=== PATIENT | male | born 1950 | race Caucasian/White ===

== ENCOUNTER 2021-03-01 08:00 | Outpatient (RCR) | payer MEDICARE, SELFPAY ==
--- NOTE | 2021-02-10 12:14 | PTOPEVAL ---
INITIAL PHYSICAL THERAPY EVALUATION and PLAN OF CARE Thank you for referring Jose Angel Dennis to [facility].? Jose Angel is scheduled to be seen for physical therapy? 2x/week for 4 weeks. Please review, sign, date and return this plan of care KRISTOPHER. I agree with and certify that the following plan of care is medically necessary. Referring Physician Date Admitting Provider: Attending Provider: Willie Fernández, Referring Provider: *PT Outpatient Evaluation Start: 02/10/21 08:02 Freq: Status: Active Protocol: Document 02/10/21 08:03 NICK (Rec: 02/10/21 09:01 NICK [email or web address]) Therapy Assessment Status Assessment Status Assessment Status Evaluation Outpatient Past Medical History Past Medical History Source of Past Medical History Patient Cardiovascular History Hx Coronary Stent Yes Hx Hypercholesterolemia Yes Hx Hypertension Yes Musculoskeletal History Hx Arthritis Yes Hx Spinal Surgery Yes: lumbar fusion,cervical- anterior approach Hx Other Musculoskeletal Disorders Yes: surgery for Dupuytren's contracture Endocrine History Hx Diabetes Yes: watching it - no meds Evaluation Information Problem Diagnosis Cervical Spondylosis C3-4, C4- 5 Onset years - worsening Subjective Information Jose Angel reports that neck will Query Text:As Reported By Patient/ snap and pop, hurts to turn Family head, feels like something is constantly pushing down on his head. Sleeping - needs to reposition often due to discomfort. In mornings - increase in stiffness, then will loosen up. If neck is still - like with watching TV or computer - when goes to move increase in discomfort. 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 Home Meds Must Be Re-entered With Each Visit. Comments Additional Prior Level of Function stays active - farm work - Comments
--- NOTE | 2021-03-10 08:33 | PCPTNOTE ---
Patient called & cancelled scheduled appointment this date due feeling well - doesn't need any further PT.
--- NOTE | 2021-03-10 08:34 | PCPTNOTE ---
PHYSICAL THERAPY DISCHARGE SUMMARY Admitting Provider: Attending Provider: Willie Fernández, Patient:Jose Angel Dennis Date of :1950 Jose Angel has done well in PT. We were able to cancel 2 of his appointments due to positive progress, but then he also cancelled his re-eval appointment for 03/10/2021 since he was feeling better. 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 He has continued to stay busy and perform his HEP which he feels does help him. He was seen for a total of 6 visits. The goals have been met. Thank you for referring Jose Angel to [facility]. Please review, sign, date and return this discharge summary KRISTOPHER. I have been updated about Jose Angel's current status and I agree with discharge from the above service at this time. Referring Physician Date
== END 2021-05-02 09:48 | disposition home or self-care (01) ==
LOC: ANHHIPT 08:00
PROVIDERS: PCP Internal Medicine; Visit Provider Neurological Surgery
DX: M47.812 Spondylosis without myelopathy or radiculopathy, cervical region (principal)
CPT/HCPCS: 97014; 97110; 97140; 97162; G0283

== ENCOUNTER 2021-08-07 07:51 | Outpatient (CLI) | payer MEDICARE, SELFPAY ==
[2021-08-07 09:32] LABS: Basophils Percent Auto 0.6 % (0.2-1.2); Eosinophils Absolute Auto 0.3 K/mm3 (0-0.3); Eosinophils Percent Auto 4.1 % (0-4.4); Hematocrit 47.1 % (42.0-52.0); Hemoglobin 16.5 g/dL (14.0-18.0); Immature Granulocyte Absolute 0.02 K/mm3 (0.00-0.031); Immature Granulocyte Percent A 0.3 % (0-0.5); Lymphocytes Absolute Auto 1.14 K/mm3 (0.9-3.2); Mean Corpuscular Hemoglobin 30.2 pg (26-34); Mean Corpuscular Volume 86.3 fl (80-100); Mean Platelet Volume 10.4 fl (7.4-10.4); Monocytes Absolute Auto 0.8 K/mm3 (0.1-0.6); Monocytes Percent Auto 11.5 % (2.6-8.5); Neutrophils Absolute Auto 4.8 K/mm3 (1.3-6.7); Neutrophils Percent Auto 67.5 % (45.5-73.1); Platelet Count Result 226 k/mm3 (150-375); Red Blood Count 5.46 M/mm3 (4.6-6.20); Red Cell Distribution Width 13.1 % (11.5-14.5); White Blood Count 7.1 K/mm3 (4.5-10.0)
[2021-08-07 09:42] LABS: INR 1.1; Partial Thromboplastin Time 25.9 SECONDS (22.3-36.8); Prothrombin Time 13.7 Seconds (11.1-14.7); Urine Cotinine NEGATIVE
[2021-08-07 09:45] LABS: Albumin Level 4.6 g/dL (3.5-5.1); Anion Gap 9 mmol/L (8-16); Blood Urea Nitrogen 25 mg/dL (9-20); Calcium 9.3 mg/dL (8.4-10.2); Carbon Dioxide 23 mmol/L (22-30); Chloride 106 mmol/L (98-107); Estimated Glomerular Filt Rate > 60; Glucose 156 mg/dL (65-110); Potassium 4.1 mmol/L (3.4-5.0); Sodium 138 mmol/L (137-145)
[2021-08-07 09:47] LABS: Add Urine Microscopic? YES; Appearance Urine Clear (Clear); Bilirubin Urine Negative (Negative); Blood Urine Negative (Negative); Color Urine Yellow (Yellow); Glucose Urine UA 1+ mg/dL (Negative); Ketones Urine Negative (Negative); Leukocyte Esterase Ur Negative LEU/UL (Negative); Mucus Urine Rare /lpf; Nitrate Urine Negative (Negative); Protein Urine Negative (Negative); RBC Urine 0-2 /hpf (0-2); Specific Grav Ur 1.029 (1.001-1.035); Squamous Epithelial Cell Urine Rare /hpf (Few); Urobilinogen Urine Negative mg/dL (<2.0); WBC Urine 0-3 /hpf
[2021-08-07 09:49] LABS: Hemoglobin A1C 6.3 % (<5.7)
== END 2021-08-07 07:52 | disposition home or self-care (01) ==
LOC: ANHSURGERY 08:01
PROVIDERS: PCP Internal Medicine; Visit Provider Orthopaedic Surgery
DX: Z01.818 Encounter for other preprocedural examination (principal); M16.9 Osteoarthritis of hip, unspecified
CPT/HCPCS: 80048; 80307; 81001; 82040; 83036; 85025; 85610; 85730; 87081

== ENCOUNTER 2021-08-29 11:47 | Inpatient (IN) | payer MEDICARE, SELFPAY ==
--- NOTE | 2021-08-07 08:00 | PC.NURSE ---
Report to the Outpatient Waiting Room, entrance under the green pavilion located off [facility], at time _0600_ on date _08/29/21_. OR Time: _0730_. - You and your visitor will be asked a series of questions to screen for COVID 19 for your protection. - A mask is required within the hospital. One visitor will be allowed to accompany the patient into the hospital. Patients visitor will be instructed to remain with patient at all times or leave the building. We will allow the visitor to come back to the postoperative area when patient is ready. (VISITING HOURS 10AM-7PM, USE MAIN ENTRANCE) Preoperative COVID Testing Requirements: NONE Patients may have clear liquids (water, carbonated beverages, clear teas, apple juice) until 3 hours prior to surgery (0430 AM) with a maximum of 20 ounces. - No food from midnight until time of surgery Take the following medications with a SIP of water the morning of surgery: METOPROLOL Medications to discontinue per physician - ASPIRIN 7 DAYS PRIOR TO SURGERY, LAST DOSE TO BE TAKEN ON 08/21/21, CALL DR. LEMON'S OFFICE REGARDING MELOXICAM & IBUPROFEN Medications to discontinue per ANESTHESIA - MULTIVITAMIN 3 DAYS PRIOR TO SURGERY, LAST DOSE TO BE TAKEN ON 08/25/21 Please no deodorant, or body powder the day of surgery. No jewelry (including any body piercings) or valuables the day of surgery, leave them at home. Please take a shower or bath the night before, or the morning of, surgery with an antibacterial soap. Wear comfortable, loose fitting clothing. - Jewelry must be removed prior to entering the operating room. Rings and piercings that are not removed may be cut off. - The hospital will not accept responsibility for valuables. - Please leave all valuables, including medications, at home the day of surgery. If you are going home after surgery, a licensed parts delivery driver must drive you home. - NO public transportation without another adult. - We recommend that an adult stay with you for 24 hours following discharge. - We also recommend that you do not drive, make important decision, drink alcoholic beverages, or take any drugs that were not prescribed by your health care provider for at least 24 hours after your discharge time. Follow any additional instructions given to you from your surgeon. Instructions given to ____PT and asked if any additional questions and then verbalized understanding. Patient advised to call surgeon office or pre surgery nurse liaisonJERRELL [phone] if any additional questions.
[2021-08-07 08:20] VITALS: BP 142/90; PULSE 88; RESP 20; TEMP 36.7; O2SAT 98; BMI 36.1
--- NOTE | 2021-08-07 08:40 | PC.NURSE ---
LATE ENTRY - 0755 DR. LEMON'S OFFICE CALLED, SPOKE WITH JAMES AND INFORMED PT WAS DX WITH SHINGLES 08/04/21 AND CURRENTLY TAKING VALACYCLOVIR - STATES WILL INFORM MED MANAGER CLUB SINCE DR. LEMON NOT IN OFFICE
[2021-08-29] VITALS (17 sets, daily range): BP systolic 92–154; BP diastolic 57–93; PULSE 63–105; RESP 12–20; TEMP 35.6–36.7; O2SAT 93–98
--- NOTE | ~2021-08-29 | XR_ITS ---
EXAMINATION: XR hip RT 1V DATE: 08/29/2021 10:27 INDICATION: Right total hip arthroplasty TECHNIQUE: AP view of the right hip FINDINGS: There is a right total hip arthroplasty in expected position. Subcutaneous gas with soft t issue swelling are consistent with recent surgery. IMPRESSION: 1. Recent right total hip arthroplasty. Reviewed, dictated and finalized at location A.
[2021-08-29] MEDS: LACTATED RINGERS 1,000 ML 30 ML IV CONT ×3 (06:35→10:16)
[2021-08-29] MEDS: TRANEXAMIC ACID 1,000MG/ISO100 1,000 MG/100 ML BAG 200 MG IVPB (06:35)
[2021-08-29 07:02] LABS: Glucose Point of Care 143 mg/dl (65-105)
--- NOTE | 2021-08-29 07:04 | WPDANESEPPF ---
Anes - Initial Pre Proc Eval Procedure: Operation Date: 08/29/21 07:30 Proposed Procedures p Right Total Hip Arthroplasty - Leonel Yancey MD Date/Time: 08/29/21 07:04 Surgeon: Leonel Yancey MD Pre Op Diagnosis: right hip djd Patient Data Age: 71 Gender: M Height: 1.63 m Weight: 95.4 kg Last Vital Signs Temp 36.7 C 08/07/21 08:20 Pulse 88 08/07/21 08:20 Resp 20 08/07/21 08:20 BP 142/90 H 08/07/21 08:20 Pulse Ox 98 08/07/21 08:20 Allergies Allergy/AdvReac Type Severity Reaction Status Date / Time Jmnlpco-OAM-GxW Reductase Allergy Intermediate Hives/RASH Verified 08/29/21 06:17 Inhibitor [Fyuieng-Ocz-Yfb Reductase Inhibitor] [place] Allergy Severe shuts Uncoded 08/29/21 06:17 breathing down Home Medications Medication Instructions Recorded Confirmed Type aspirin 325 mg tablet 81 mg PO DAILY tablet 02/07/21 08/29/21 History losartan 100 mg tablet 100 mg PO QAM 02/07/21 08/29/21 History meclizine 25 mg tablet 25 mg PO BID 02/07/21 08/29/21 History meloxicam 15 mg tablet 15 mg PO QAM 02/07/21 08/29/21 History metformin 500 mg tablet 500 mg PO BID 02/07/21 08/29/21 History metoprolol tartrate 25 mg tablet 25 mg PO QAM tablet 02/07/21 08/29/21 History ibuprofen 600 mg PO Q6H PRN 08/07/21 08/29/21 History multivitamin [Multi-Vitamin] 1 tablet PO QAM 08/07/21 08/29/21 History nitroglycerin 0.4 mg SUBLINGUAL Q5-15M PRN 08/07/21 08/07/21 History chlorhexidine gluconate 4 % 1 applic TOPICAL ONCE #237 ml 08/21/21 08/29/21 Rx topical liquid Laboratory Tests 08/29/21 06:59 POC Capillary Glucose 143 mg/dl H mg/dl (65-105) Patient hx anesthesia problems: none Family hx anesthesia problems: none Results Review: All pre-operative results and documents have been reviewed as part of the pre-operative evaluation. [facility] Past Medical History Medical History (Updated 08/29/21 @ 07:04 by Ravindra Pappas MD) CAD (coronary artery disease) Shingles Surgical History Surgical History History of back surgery Lower back, 2010, Dr. Lerner History of elbow surgery History of hand surgery Dr. Sanchez History of neck surgery 2012, Dr. Lerner Stented coronary artery Family History Family History Other Heart disease History of arthritis History of lung disease Social History Social History Smoking status: Never smoker Second hand tobacco smoke exposure: No Additional smoking assessment comments: PT DENIES ALL FORMS OF TOBACCO USE Alcohol intake: never Substance use: never Substance use type: does not use Living arrangements: alone Additional occupation/education comments: [employer] Spiritual care concerns: No Anes - Eval Final PreProcedure Day of Procedure 08/29/21 07:04 Patient weight: obese Heart: regular rate and rhythm Lungs: clear to auscultation Airway: Mallampati scale class II Neurological: alert and oriented Last oral intake: >/= 8 hours ASA classification: III Emergent: no Anesthetic plan: proceed Anesthesia type and monitoring: general ETT and standard monitoring Results Review: All pre-operative results and documents have been reviewed as part of the pre-operative evaluation. Informed Consent: The patient's anesthetic plan and its attendant risks and benefits were discussed with the patient/family/POA. Questions were solicited and answers provided to the satisfaction of the patient/family/POA.
[2021-08-29] MEDS: ACETAMINOPHEN 500 MG TABLET 1000 MG PO (07:20)
--- NOTE | 2021-08-29 07:21 | WPDHPUPDATE1 ---
History and Physical Update Update Date/Time: 08/29/21 07:21 History and Physical has been reviewed, including an updated exam of the patient. There are NO changes in the patient's condition. Risks, benefits, and alternatives have been discussed and questions answered. Patient agrees to proceed with procedure.
[2021-08-29] MEDS: ceFAZolin 2 GM/D5W 50 ML 2 GM/50 ML BAG IVPB ×2 (07:33→16:12)
[2021-08-29] MEDS: TRANEXAMIC ACID 1,000 MG/10 ML AMPUL 1000 MG IV PUSH (09:17)
--- NOTE | 2021-08-29 09:53 | W.PM.PROC2 ---
Procedure Note - Detailed Date of Procedure 08/29/21 Pre-op Diagnosis right hip djd Post-op Diagnosis Same Procedure Performed R WIL Surgeon Leonel Yancey MD Anesthesia General Description of Procedure THE PATIENT WAS TAKEN TO THE OPERATING ROOM IN STABLE CONDITION AND WAS PLACED IN THE LATERAL DECUBITUS AND THE RIGHT LOWER EXTREMITY WAS PREPPED AND DRAPED IN THE STERILE FASHION. INCISION WAS MADE IN THE POSTERIOR LATERAL SIDE OF THE HIP, DOWN TO THE FASCIA LAYER. THE FASCIA WAS INCISED. THE HIP WAS EXPOSED. THE SHORT EXTERNAL ROTATORS WERE EXPOSED. THE SCIATIC NERVE WAS IDENTIFIED. THERE WAS A HIGH BIFURCATION OF THE NERVE. INCISION WAS MADE THROUGH THE SORT EXTERNAL ROTATORS AND THE CAPSULE OF THE HIP JOINT. THE HIP WAS DISLOCATED. AN OSTEOTOMY WAS MADE TO THE FEMORAL NECK ABOUT 1 CM PROXIMAL TO THE LESSER TROCHANTER. THE ACETABULUM WAS EXPOSED. THERE WAS SEVERE DJD SEEN. BEGINNING WITH A 44 REAMER THE ACETABULUM WAS REAMED TO 53 MM. A 55 MM TRIAL WAS PLACED IN 35 DEG OF ABDUCTION AND ANTEVERSION WAS IN ALIGNMENT WITH THE TRANS ACETABULAR LIGAMENT. THE FIT WAS EXCELLENT. THE TRIAL WAS REMOVED. A 56 MM BIOMET G7 COMPONENT WAS THEN TAPPED IN TO PLACE IN 35 DEG OF ABDUCTION AND ANTEVERSION IN ALIGNMENT WITH THE TRANSVERSE ACETABULAR LIGAMENT. THE FIT WAS EXCELLENT. THE ACETABULAR LINER WAS PLACED AND CHECKED FOR STABILITY. NEXT THE FEMUR WAS PREPARED WITH INITIAL CANAL FINDER THEN SEQUENTIAL BROACHING WITH A TAPERLOC HIP SYSTEM, UNTIL A 13 BROACH FIT WELL IN 15 OF ANTEVERSION. A +0 HIGH OFFSET NECK WITH 36 MM HEAD TRIAL WAS PLACED. THE SHUCK TEST WAS EXCELLENT AND THE STABILITY IN FLEXION AND ROTATION WAS EXCELLENT. LEG LENGTHS WERE GROSSLY EQUAL. TRIALS WERE REMOVED. A BIOMET TAPERLOC 13 STEM WAS PLACED WITH A HIGH OFFSET NECK THE FIT WAS EXCELLENT IN 15 DEG OF ANTEVERSION. A +0 CERAMIC 36 MM FEMORAL HEAD WAS PLACED. THE HIP WAS TRIALED AND THE STABILITY WAS EXCELLENT WERE THE LEG LENGTHS AND THE SHUCK TEST. THE WOUND WAS IRRIGATED WITH STERILE BETADINE AND WATER FOR 3 MIN. THEN WASHED AGAIN. THE CAPSULE AND THE EXTERNAL ROTATORS WERE APPROXIMATED WITH NUMBER 1 VICRYL. THE FASCIA WITH A NUMBER 1 AND THE SUB CUTANEOUS LAYER WITH 2-0 ABSORBABLE SUTURE WITH A RUNNING 3-0 SUBCUTICULAR LAYER WELL. DERMABOND WAS PLACED AND STERILE DRESSING WAS APPLIED. PATIENT WAS PLACED BACK ON TO THE SUPINE POSITION AND WAS EXTUBATED Estimated Blood Loss 200 Complications No immediate complications Condition Stable Disposition PACU
[2021-08-29 10:37] LABS: Glucose Point of Care 196 mg/dl (65-105)
[2021-08-29] MEDS: fentaNYL CITRATE INJ (*CRX) 100 MCG/2 ML VIAL 25 MCG IV PUSH ×4 (10:40→11:25)
--- NOTE | 2021-08-29 10:45 | SUR.PHASEI ---
1023 RT HIP 1 VIEW XRAY TAKEN IN PACU.
[2021-08-29 11:29] LABS: Hepatitis B Surface Antigen Negative (Negative)
[2021-08-29 11:47] LABS: HIV 1/2 Ab P24 Ag Result Negative (Negative); Hepatitis C Virus Antibody Negative (Negative)
--- NOTE | 2021-08-29 12:39 | ADMGEN ---
This patient, Jose Angel Dennis, was admitted to Medical Room 246-01 from PACU. Patient/family oriented to hospital policies and general routines including ID bracelet, bed and alarms, visiting hours, pain management, procedures, bathroom and other care routines, personal items, smoking policy, room service/diet, and visiting hours. Information on how to activate the Rapid Response Team has been discussed. Patient/Family are encouraged to report perceived risks to care and to ask questions if they do not understand what they are told or what they should do.
[2021-08-29] MEDS: SODIUM CHLORIDE 0.9% IV 1,000 ML 125 ML IV CONT (13:00)
[2021-08-29] MEDS: KETOROLAC 15 MG/ML VIAL (*BKC) IV PUSH ×2 (13:24→18:55)
[2021-08-29] MEDS: ONDANSETRON INJ 4 MG/2 ML VIAL IV PUSH ×2 (14:38→18:56)
[2021-08-29] MEDS: HYDROcodone/acetaminophen (*CRX) 7.5-325 MG TABLET 1 TAB PO ×3 (16:12→22:53)
[2021-08-29] MEDS: MECLIZINE HCL 25 MG TABLET PO (17:03)
[2021-08-29] MEDS: metFORMIN HCL 500 MG TABLET PO (17:04)
[2021-08-29] MEDS: SENNA/DOCUSATE SODIUM TABLET 2 TAB PO (17:04)
[2021-08-29 21:05] LABS: Glucose Point of Care 168 mg/dl (65-105)
[2021-08-30] VITALS (8 sets, daily range): BP systolic 100–134; BP diastolic 57–61; PULSE 83–104; RESP 16–20; TEMP 35.8–37.2; O2SAT 91–97
[2021-08-30] MEDS: KETOROLAC 15 MG/ML VIAL (*BKC) IV PUSH ×3 (00:30→11:27)
[2021-08-30] MEDS: ceFAZolin 2 GM/D5W 50 ML 2 GM/50 ML BAG IVPB ×2 (00:31→08:06)
[2021-08-30 06:05] LABS: Basophils Percent Auto 0.2 % (0.2-1.2); Eosinophils Percent Auto 0.3 % (0-4.4); Hematocrit 32.2 % (42.0-52.0); Hemoglobin 11.6 g/dL (14.0-18.0); Immature Granulocyte Absolute 0.04 K/mm3 (0.00-0.031); Immature Granulocyte Percent A 0.4 % (0-0.5); Lymphocytes Absolute Auto 1.07 K/mm3 (0.9-3.2); Lymphocytes Percent Auto 11.8 % (18.3-44.2); Mean Corpuscular Hemoglobin 31.2 pg (26-34); Mean Corpuscular Volume 86.6 fl (80-100); Mean Platelet Volume 10.8 fl (7.4-10.4); Monocytes Absolute Auto 1.1 K/mm3 (0.1-0.6); Monocytes Percent Auto 11.7 % (2.6-8.5); Neutrophils Absolute Auto 6.9 K/mm3 (1.3-6.7); Neutrophils Percent Auto 75.6 % (45.5-73.1); Platelet Count Result 189 k/mm3 (150-375); Red Blood Count 3.72 M/mm3 (4.6-6.20); Red Cell Distribution Width 13.2 % (11.5-14.5); White Blood Count 9.1 K/mm3 (4.5-10.0)
[2021-08-30 06:16] LABS: Anion Gap 5 mmol/L (8-16); Blood Urea Nitrogen 23 mg/dL (9-20); Calcium 8.1 mg/dL (8.4-10.2); Carbon Dioxide 25 mmol/L (22-30); Chloride 104 mmol/L (98-107); Estimated CRCL calculation 58 ml/min; Estimated Glomerular Filt Rate > 60; Glucose 149 mg/dL (65-110); Potassium 3.7 mmol/L (3.4-5.0); Sodium 134 mmol/L (137-145)
--- NOTE | 2021-08-30 07:55 | WPDANESPN ---
Anes - Prog Note Post-Op Date/Time: 08/30/21 07:55 Cardiovascular status: normal Respiratory status: normal Airway patency: baseline Mental status: baseline Post-Op hydration status: normal Vital Signs: Last Vital Signs Temp 99 F 08/30/21 04:49 Pulse 104 H 08/30/21 04:49 Resp 20 08/30/21 04:49 BP 114/58 L 08/30/21 04:49 Pulse Ox 91 08/30/21 04:49 Pain Score (VAS): 06/19 I/O: Intake & Output 08/29/21 08/29/21 08/30/21 15:59 23:59 07:59 Intake Total 450 790 290 Output Total 650 250 Balance 450 140 40 Laboratory Tests 08/30/21 05:34 08/30/21 05:34 08/29/21 08/29/21 08/29/21 06:56 10:12 10:31 WBC RBC Hgb Hct MCV MCH MCHC RDW Plt Count MPV Immature Gran % (Auto) Neut % (Auto) Lymph % (Auto) [place] % (Auto) Eos % (Auto) Baso % (Auto) Lymph # (Auto) [place] # (Auto) Eos # (Auto) Baso # (Auto) Abs Immat Gran (auto) Absolute Neuts (auto) Absolute Nucleated RBC Nucleated RBC % Sodium Potassium Chloride Carbon Dioxide Anion Gap BUN Creatinine Estim Creat Clear Calc Estimated GFR Glucose POC Capillary Glucose 196 H Calcium Hep Bs Antigen Negative Hepatitis C Ab Screen Negative HIV 1&2 Ab/P24 Ag 4thGn Negative Blood Type A Positive Antibody Screen Negative 08/29/21 08/30/21 08/30/21 19:49 05:34 05:34 WBC 9.1 RBC 3.72 L Hgb 11.6 L D Hct 32.2 L MCV 86.6 MCH 31.2 MCHC 36.0 RDW 13.2 Plt Count 189 MPV 10.8 H Immature Gran % (Auto) 0.4 Neut % (Auto) 75.6 H Lymph % (Auto) 11.8 L [place] % (Auto) 11.7 H Eos % (Auto) 0.3 Baso % (Auto) 0.2 Lymph # (Auto) 1.07 [place] # (Auto) 1.1 H Eos # (Auto) 0.0 Baso # (Auto) 0.0 Abs Immat Gran (auto) 0.04 H Absolute Neuts (auto) 6.9 H Absolute Nucleated RBC 0.0 Nucleated RBC % 0.0 Sodium 134 L Potassium 3.7 Chloride 104 Carbon Dioxide 25 Anion Gap 5 L BUN 23 H Creatinine 1.10 Estim Creat Clear Calc 58 Estimated GFR > 60 Glucose 149 H POC Capillary Glucose 168 H Calcium 8.1 L Hep Bs Antigen Hepatitis C Ab Screen HIV 1&2 Ab/P24 Ag 4thGn Blood Type Antibody Screen Post-procedural complaints: none Patient Feedback: Patient satisfied with anesthetic care.
[2021-08-30 08:03] LABS: Glucose Point of Care 202 mg/dl (65-105)
[2021-08-30] MEDS: HYDROcodone/acetaminophen (*CRX) 7.5-325 MG TABLET 1 TAB PO ×3 (08:07→17:47)
[2021-08-30] MEDS: MECLIZINE HCL 25 MG TABLET PO ×2 (08:07→16:59)
[2021-08-30] MEDS: SENNA/DOCUSATE SODIUM TABLET 2 TAB PO ×2 (08:07→16:59)
[2021-08-30] MEDS: LOSARTAN POTASSIUM 100 MG TABLET PO (08:07)
[2021-08-30] MEDS: metFORMIN HCL 500 MG TABLET PO ×2 (08:07→16:59)
[2021-08-30] MEDS: polyethylene glycoL 3350 17 GM POWD.PACK PO (08:07)
[2021-08-30] MEDS: METOPROLOL TARTRATE 25 MG TABLET PO (08:07)
[2021-08-30] MEDS: ASPIRIN 325 MG ENTERIC TABLET 650 MG PO (08:07)
--- NOTE | 2021-08-30 16:55 | PM.PNORT ---
Progress Note: A&P Additional Plan POD 1 DOING WELL. NO CALF PAIN. DOING WELL WITH PT. PAIN WELL CONTROLLED. OK TO DC HOME F/U IN 3 WEEKS. Time Spent With Patient Time with patient: less than 15 minutes Subjective Subjective Date/Time Seen: 08/30/21 POD 1 DOING WELL. NO CALF PAIN Exam Extrem: Other: VSS AFEBRILE DRESSING DRY NV INTACT NEG HOMANS SIGN Objective Data Vital Signs Vital Signs: Vital Signs - 24 hr 08/29/21 17:48 08/29/21 20:00 08/29/21 20:08 Temperature 36.4 C L 36.0 C L Pulse Rate 105 H 90 90 Respiratory Rate 16 18 18 Blood Pressure 107/60 121/66 Pulse Oximetry 97 94 94 08/30/21 00:25 08/30/21 01:34 08/30/21 04:49 Temperature 35.8 C L 37.2 C Pulse Rate 100 104 H Respiratory Rate 20 20 Blood Pressure 107/57 L 114/58 L Pulse Oximetry 94 95 91 08/30/21 08:05 08/30/21 08:07 08/30/21 10:35 Temperature 36.6 C 36.0 C L Pulse Rate 98 88 84 Respiratory Rate 16 18 Blood Pressure 116/61 100/61 Pulse Oximetry 95 93 08/30/21 14:20 Temperature 36.6 C Pulse Rate 83 Respiratory Rate 16 Blood Pressure 134/58 L Pulse Oximetry 93 Intake/Output Intake/Output: Intake & Output 08/27/21 08/28/21 08/29/21 08/30/21 23:59 23:59 23:59 23:59 Intake Total 1340 820 Output Total 650 250 Balance 690 570 Meds/Results Medications: Active Medications Generic Name Dose Route Start Last Admin Trade Name Freq PRN Reason Stop Dose Admin Acetaminophen 650 mg 08/29/21 11:47 Acetaminophen 325 Mg Tablet PO Q6H PRN Mild Pain (1-3) or Fever Hydrocodone Bitart/Acetaminophen 1 tab 08/29/21 11:47 08/30/21 14:38 Hydrocodone/Acetaminophen (*Crx) 7.5-325 Mg Tablet PO 1 tab Q3H PRN Administration Pain Rated 4-6 Artificial Tears 1 drop 08/29/21 16:10 Artificial Tears Ophth Soln 15 Ml Bottle EACH EYE QID PRN Dry Eye(s) Aspirin 650 mg 08/30/21 09:00 08/30/21 08:07 Aspirin 325 Mg Enteric Tablet PO 650 mg DAILY DOM Administration Diazepam 5 mg 08/29/21 11:47 Diazepam (*Crx) 5 Mg Tablet PO Q6H PRN Anxiety/Muscle Spasm Hydroxyzine HCl 50 mg 08/29/21 11:47 Hydroxyzine Hcl 25 Mg Tablet PO Q4H PRN Itching Losartan Potassium 100 mg 08/30/21 09:00 08/30/21 08:07 Losartan Potassium 100 Mg Tablet PO 100 mg QAM DOM Administration Meclizine HCl 25 mg 08/29/21 17:00 08/30/21 08:07 Meclizine Hcl 25 Mg Tablet PO 25 mg BID DOM Administration Metformin HCl 500 mg 08/29/21 17:00 08/30/21 08:07 Metformin Hcl 500 Mg Tablet PO 500 mg BIDWM DOM Administration Metoprolol Tartrate 25 mg 08/30/21 09:00 08/30/21 08:07 Metoprolol Tartrate 25 Mg Tablet PO 25 mg QAM DOM Administration Miscellaneous Information 1 each 08/29/21 00:01 Metoprolol Once Daily. Should This Be Toprol Xl? XX 09/28/21 00:00 [facility] Morphine Sulfate 3 mg 08/29/21 11:47 Morphine Sulfate (*Crx) 4 Mg/Ml Inj IV PUSH Q3H PRN Pain Rated 7-10 Naloxone HCl 0.1 mg 08/29/21 11:47 Naloxone Hcl 0.4 Mg/Ml Vial IV PUSH Q2M PRN Opiate Reversal Nitroglycerin 0.4 mg 08/29/21 11:47 Nitroglycerin Sl 0.4 Mg Tablet SUBLINGUAL Q5MIN PRN Chest Pain Ondansetron HCl 4 mg 08/29/21 11:47 08/29/21 18:56 Ondansetron Inj 4 Mg/2 Ml Vial IV PUSH 4 mg Q4H PRN Administration Nausea And Vomiting Polyethylene Glycol 17 gm 08/30/21 09:00 08/30/21 08:07 Polyethylene Glycol 3350 17 Gm Powd.Pack PO 17 gm QAM DOM Administration Senna/Docusate Sodium 2 tab 08/29/21 17:00 08/30/21 08:07 Senna/Docusate Sodium Tablet PO 2 tab BID DOM Administration Radiology Results: ITS Impressions Hip X-Ray 08/29/21 10:28 IMPRESSION: 1. Recent right total hip arthroplasty. Labs Labs: Laboratory Results - last 24 hr 08/29/21 08/30/21 08/30/21 19:49 05:34 05:34 WBC 9.1 RBC 3.72 L Hgb 11.6 L D Hct 32.2 L MCV 86.6 M
--- NOTE | 2021-08-30 17:01 | PM.DS ---
DS: Admitting Diagnosis Discharge Date 08/30/21 Admitting Diagnosis RIGHT HIP DJD DS: Discharge Diagnosis Discharge Diagnosis (1) S/P total hip arthroplasty: Code(s): Z96.649 - Presence of unspecified artificial hip joint Status: Acute DS: Summary Hospital Course Reason for hospitalization: R WIL Hospital Course: PATIENT WAS ADMITTED S/P TOTAL R WIL ARTHROPLASTY FOR POSTOPERATIVE MEDICAL MANAGEMENT, PAIN CONTROL AND MOBILIZATION WITH PHYSICAL AND OCCUPATIONAL THERAPY. THE PATIENT PROGRESSED WELL WITH PT/OT. LABS AND VITALS REMAINED STABLE AND PAIN WELL CONTROLLED. THE PATIENT HAS BEEN CLEARED TO BE DISCHARGED HOME. FOLLOW UP APPOINTMENT SCHEDULED. DISCHARGE INSTRUCTIONS DISCUSSED AT LENGTH WITH THE PATIENT. MEDICATIONS REVIEWED. Time spent discussing smoking cessation with patient: 3 to 10 minutes Status at Discharge Functional status at discharge: uses cane/walker Time Spent with Patient Time attestation: Total time spent providing and/or coordinating discharge services: Time spent: Less than 30 minutes DS: Data Data Completed and Pending Labs on day of discharge: Labs from last 24 hours 08/30/21 08/30/21 08/30/21 08:00 05:34 05:34 WBC 9.1 RBC 3.72 L Hgb 11.6 L D Hct 32.2 L MCV 86.6 MCH 31.2 MCHC 36.0 RDW 13.2 Plt Count 189 MPV 10.8 H Immature Gran % (Auto) 0.4 Neut % (Auto) 75.6 H Lymph % (Auto) 11.8 L [place] % (Auto) 11.7 H Eos % (Auto) 0.3 Baso % (Auto) 0.2 Lymph # (Auto) 1.07 [place] # (Auto) 1.1 H Eos # (Auto) 0.0 Baso # (Auto) 0.0 Abs Immat Gran (auto) 0.04 H Absolute Neuts (auto) 6.9 H Absolute Nucleated RBC 0.0 Nucleated RBC % 0.0 Sodium 134 L Potassium 3.7 Chloride 104 Carbon Dioxide 25 Anion Gap 5 L BUN 23 H Creatinine 1.10 Estim Creat Clear Calc 58 Estimated GFR > 60 Glucose 149 H POC Capillary Glucose 202 H Calcium 8.1 L 08/29/21 19:49 WBC RBC Hgb Hct MCV MCH MCHC RDW Plt Count MPV Immature Gran % (Auto) Neut % (Auto) Lymph % (Auto) [place] % (Auto) Eos % (Auto) Baso % (Auto) Lymph # (Auto) [place] # (Auto) Eos # (Auto) Baso # (Auto) Abs Immat Gran (auto) Absolute Neuts (auto) Absolute Nucleated RBC Nucleated RBC % Sodium Potassium Chloride Carbon Dioxide Anion Gap BUN Creatinine Estim Creat Clear Calc Estimated GFR Glucose POC Capillary Glucose 168 H Calcium Discharge Plan Discharge Attending physician on discharge: Leonel Yancey Discharging Clinician: Leonel Yancey Anticipated Discharge Date/Time: 08/30/21 15:00 Patient Disposition: Home Health Service Activity: may shower, no driving and follow weight bearing status Diet: as tolerated Wound Care Instructions: follow printed instructions Discharge Instructions: Post Op Total Hip Replacement Instructions Dr. Leonel Yancey [phone] ? Your dressing will be changed prior to your discharge. You will be sent home with one additional dressing to be changed on post op day 7 by the home health RN. You may remove the dressing on post op day 14. Your incision was closed with dermabond, allow the dermabond to fall off naturally once your dressing is removed. Do not pull at the dermabond or disrupt incision healing. ? You may shower with your dressing but do not submerge in a bath tub. ? Do not drive or operate machinery until you are released by Dr. Yancey. ? Do not walk without a walker for any reason until you are released by Dr. Yancey. ? Continue to apply ice to the hip intermittently for additional pain relief. Protect your skin with a towel or pillow case. ? Continue to follow strict total hip replacement precautions. ? Your first post op appointment was sent to you via mail preoperatively. If you have any questions or are unable to make your appointment, please contact our office for scheduling questions. ? Your medications have
== END 2021-08-30 18:20 | disposition home health service (06) | DRG 470 ==
LOC: ANH2MED 11:51
PROVIDERS: Admitting Provider Orthopaedic Surgery; PCP Internal Medicine; Visit Provider Orthopaedic Surgery
PROC: 0SR903Z Replacement of Right Hip Joint with Ceramic Synthetic Substitute, Open Approach (ICD-10-PCS; CPT 27130; principal; 2021-08-29 07:30)
DX: M16.11 Unilateral primary osteoarthritis, right hip (principal); E11.9 Type 2 diabetes mellitus without complications; B02.9 Zoster without complications
CPT/HCPCS: 36415; 73501; 80048; 82948; 85025; 86703; 86803; 86850; 86900; 86901; 87340; 97110; 97116; 97161; 97165; 97530; 97535; A9270; C1776; G0432; J0171; J0690; J1885; J2250; J2270; J2370; J2405; J2704; J2710; J2795; J3010; J7030; J7120

== ENCOUNTER 2021-10-02 10:45 | Outpatient (RCR) | payer MEDICARE, SELFPAY ==
--- NOTE | 2021-09-25 11:01 | PTOPEVAL ---
PHYSICAL THERAPY INITIAL EVALUATION. Thank you for referring Jose Angel Dennis to [facility].? The patient is scheduled to be seen for therapy? 1x/week for 4weeks. Please review, sign, date and return this plan of care KRISTOPHER. I agree with and certify that the following plan of care is medically necessary. Referring Physician Date Attending Provider: Leonel Yancey MD *PT Outpatient Evaluation Start: 09/25/21 Evaluation Information Diagnosis post of R WIL Onset 08/01/21 Subjective Information Pt states his pain has been Query Text:As Reported By Patient/ really manageable. He Family participated in one week of home health PT and then was discharged. He reports the most difficultly with putting his socks on. 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 He states he was to be done with this stuff as soon as I can . Pain Assessment Self Report Pain Assessment Right Hip(s) Reported Pain Level 1 Pain Frequency Acute Greatest Pain Intensity 3 Pain Aggravating Factors Weight Bearing/Standing for prolonged time Lower Extremity Range of Motion Gross Lower Extremity Range of Motion L hip flexion 120deg Comments R hip flexion 90 deg actively to maintain hip precautions B active hip extension 10deg Lower Extremity Muscle Strength Testing Gross Lower Extremity Strength B LE strength grossly 5/5 B hip abduction 4+/5 Functional strength assessment: R SLS: 30s L SLS: 30s 8in step up leading with alt LE - no deviations 8in lateral step up, alt - no deviations body weight squats - no deviations, no UE support needed Palpation Assessment Palpation no tenderness, incision look clean and intact Balance Assessment Time in Seconds 9 5 Time Sit to Stand Comments without the use of UEs, one Query Text:Normative Data: If Greater loss of balance due to Than 15 Seconds, 74% Increase Risk for increased speed. Recurrent Falls Gait Assessment Ambulation Assistive Devices None Gait Pattern No Deviations/Normal Stair Climbing Assessment Stair Climbing Assistive Devices None Weight Bearin
--- NOTE | 2021-10-02 11:22 | PCPTNOTE ---
Attending Provider: Leonel Yancey MD Patient:Jose Angel Dennis Date of :1950 Patient reports he has returned to his usual work tasks without limitations. He reports pulling a floor alfredo through the grass, climbing up and down a ladder to get on/off a tractor, push mowing his and his sons yard, changing tires and oil of a car, pickup up sticks, and carry items up/down stairs without any limitations or pain. Today he demonstrates good balance, strength, and stability with multiplanar strength and balance challenges. He is able to demonstrate a functional squat as well a half kneeling lunge to reach the floor. He reports being able to push/pull heavy loads without issues. He demonstrates excellent functional strength. He no longer requires skilled physial therapy services and will be discharged at this time. He was instructed to continue with his HEP and to follow up with his referring provider if any new symptoms or issues occur. The goals have been met. Thank you for referring this patient to [facility]. Please review, sign, date and return this discharge summary KRISTOPHER. I have been updated about the patient's current status and I agree with discharge from the above service at this time. Referring Physician Date
== END 2021-10-25 10:56 | disposition home or self-care (01) ==
LOC: ANHHIPT 10:45
PROVIDERS: PCP Internal Medicine; Referring Provider Orthopaedic Surgery; Visit Provider Orthopaedic Surgery
DX: Z47.1 Aftercare following joint replacement surgery (principal); Z96.641 Presence of right artificial hip joint
CPT/HCPCS: 97110; 97112; 97161

== ENCOUNTER 2023-12-17 08:56 | Outpatient (CLI) | payer MEDICARE, SELFPAY ==
--- NOTE | ~2023-12-17 | MR_ITS ---
MRI of the left knee Clinical history: Pain Technique: Coronal proton density and proton density-weighted images, sagittal proton-density and T2 fat-sat images, and axial proton-density fat-saturated images were acquired. Findings: Anterior and posterior cruciate ligaments are intact. There is increased signal in ACL, sug gestive of mucoid degenerative change. Medial collateral ligament and the lateral collateral ligament complex are intact. Popliteus tendon is intact. There is complex tear of the body segment of the medial meniscus, probably extending to the posterior horn. No lateral meniscal tear seen. 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 There is moderate to high-grade cho ndral malacia the inferior femoral trochlea. There is extensive moderate to high-grade chondromalacia of the medial femoral condyle. There is focal moderate chondromalacia at the lateral joint line. Sma ll tricompartmental osteophytes are present. Extensor mechanism is intact. There is minimal joint effusion. No Velasco's cyst. There is mild prepate llar soft tissue edema, nonspecific. Impression: Complex tearing of the body segment of the medial meniscus, probably extending into the posterior hor n. Moderate tricompartmental degenerative change, as detailed above. Mild prepatellar soft tissue edema, nonspecific. Mucoid degenerative change of the ACL, without evidence of tear. Reviewed, dictated and finalized at location M. Impression: Complex tearing of the body segment of the medial meniscus, probably extending into the posterior horn. Moderate tricompartmental degenerative change, as detailed above. Mild prepatellar soft tissue edema, nonspecific. Mucoid degenerative change of the ACL, without evidence of tear.
== END 2023-12-17 08:57 ==
PROVIDERS: PCP Orthopaedic Surgery; Visit Provider Orthopaedic Surgery
DX: M25.562 Pain in left knee (principal); S83.232A Complex tear of medial meniscus, current injury, left knee, initial encounter; M85.89 Other specified disorders of bone density and structure, multiple sites
CPT/HCPCS: 73721